=== PATIENT | female | born 1940 | race Caucasian/White ===

== ENCOUNTER 2016-09-07 12:47 | Emergency (ER) | payer MEDICARE ==
--- NOTE | ~2016-09-07 | US85 ---
[facility] A Service of [facility] & [facility] RADIOLOGY TEXT RESULTS PATIENT: TAMAR MARTINES LOCATION: [facility] : 38 UNIT #: [id number] AGE: [address]: Piero Benson MD SEX: F ORDER DR: [id number] [facility] [address] [place], [place] [address] [id number] MR#: [id number] #: [id number] NAME: TAMAR MARTINES. : 1940 SEX: F STUDY DATE/TIME: 09/07/2016 13:44 UNIT: [facility] ROOM: STUDY DESCRIPTION: LE Veins Unilat or Ltd Stdy Attending Physician: Piero Benson M.D. Ordering Physician: Piero Benson M.D. Primary Care Physician: Arely Sesay M.D. MEDICAL IMAGING REPORT This report is preliminary unless electronic signature is present EXAM Right lower extremity venous duplex 09/07/2016 HISTORY Right lower extremity pain and swelling primarily in calf and ankle for 3 days. Evaluate for deep vein thrombosis. FINDINGS Montoya-scale images of the right lower extremity were obtained as well as Doppler waveform spectral analysis and color flow Doppler imaging. There is normal blood flow and compressibility in the right common femoral vein, deep femoral vein, superficial femoral vein and popliteal vein. Normal blood flow and compressibility is seen within the deep veins of the right calf. There is however occlusive thrombus in the distal aspect of the right greater saphenous vein extending from the distal thigh to the ankle characteristic of superficial thrombophlebitis. IMPRESSION 1. No evidence of deep vein thrombosis in the right lower extremity. 2. Occlusive thrombus in the distal aspect of the right greater saphenous vein extending from the distal aspect of the right thigh to the right ankle characteristic of superficial thrombophlebitis. STAT * RESULT Dictated by... Amadeo Drwe M.D. THIS IS AN ELECTRONICALLY VERIFIED REPORT Amadeo Drew M.D. at 09/08/2016 8:10 AM MERARY/jordan [facility] A Service of [facility] RADIOLOGY TEXT RESULTS PATIENT: TAMAR AMRTINES LOCATION: [facility] : 38 UNIT #: [id number] AGE: [address]: Piero Benson MD SEX: F ORDER DR: TD: 09/07/2016 14:05 JOB #: [id number] MEDICAL IMAGING REPORT Page 1 of 1 COPY
[~2016-09-07 12:47] MED LIST: ALLOPURINOL300 MG PO; ARIXTRA10 MG/0.8 SQ; ASPIRIN ENTERI325 M1 PO; ASPIRIN81 M1 PO; COUMADIN PO; DIOVAN HCT 80/11 TAB PO; DIOVAN PO; FISH OIL 1,0001 CAP PO; HCTZ PO; INDOCIN25 MG/5 ML PO; JANUMET 50-501 UDTAB PO; LANSOPRAZOLE30 MG PO; LEXAPRO PO; LORTAB 10-5001 EACH PO; MOBIC PO; MULTIVITAMIN1 UDCAP PO; NATURAL VITA100 UNIT PO; PLAQUENIL200 MG PO; QUESTRAN POWDE378 GM; REMERON15 MG PO; VALSARTAN-HCTZ1 EACH PO; VICODIN 5/1 TAB 5/50 PO; VITAMIN C PO; VITAMIN D PO; ZANTAC150 M1 PO
[2016-09-07 13:51] LABS: BASOPHIL% 0.8 % (0-2.5); EOSINOPHIL# 0.1 X10e3 (0-0.7); EOSINOPHIL% 1.5 % (0.0-7.0); HEMATOCRIT 38.9 % (35.0-45.0); HEMOGLOBIN 12.4 gm/dL (12.0-16.0); LYMPHOCYTE# 1.5 X10e3 (1.0-3.5); LYMPHOCYTE% 24.7 % (17.0-45.0); MEAN CELL VOLUME 87.2 FL (83-96); MEAN CORPUSCULAR HEMOGLOBIN 27.8 PG (28-34); MEAN CORPUSCULAR HGB CONC 31.8 g/dL (30-36); MEAN PLATELET VOLUME 10.1 FL (6.5-11.5); MONOCYTE# 1.1 X10e3 (0-1.0); MONOCYTE% 17.8 % (3.0-12.0); NEUTROPHIL# 3.3 X10e3 (1.5-7.1); NEUTROPHIL% 55.2 % (40-75); PLATELET COUNT 245 X10e3 (140-420); RED BLOOD COUNT 4.46 X10e (3.90-5.30); RED CELL DISTRIBUTION WIDTH 14.5 % (11.0-15.5); WHITE BLOOD COUNT 5.9 X10e3 (4.0-10.5)
[2016-09-07 13:54] LABS: DIFF IND NO
[2016-09-07 14:19] LABS: CALCIUM SERUM 8.8 mg/dL (8.4-10.2); CREATININE SERUM 0.9 mg/dL (0.6-1.4); GLOM FILT RATE Estimated 61.7 mL/min (>60); POTASSIUM 4.2 mmol/L (3.5-5.1)
[2016-09-07 15:12] LABS: PARTIAL THROMBOPLASTIN TIME 25.5 SECONDS (23.5-31.3); PROTHROMBIN TIME (PATIENT) 10.7 SECONDS (9.6-11.5)
== END 2016-09-07 15:05 | disposition home or self-care (01) ==
LOC: CED 12:47
PROVIDERS: Emergency Medicine
DX: I80.01 Phlebitis and thrombophlebitis of superficial vessels of right lower extremity (principal); E11.9 Type 2 diabetes mellitus without complications; I82.401 Acute embolism and thrombosis of unspecified deep veins of right lower extremity; I10 Essential (primary) hypertension; K21.9 Gastro-esophageal reflux disease without esophagitis; Z90.710 Acquired absence of both cervix and uterus
CPT/HCPCS: 80048; 85025; 85610; 85730; 93971; 99284